=== PATIENT | female | born 1935 | race Caucasian/White ===

== ENCOUNTER → 2024-01-08 07:16 | Outpatient (REF) | payer OTHER, SELFPAY ==
[2024-01-08 08:34] LABS: % Basophils 0.5 % (0-2); % Eosinophils 1.8 % (0-6); % Immature Granulocytes 0.4 % (0-0.5); % Lymphocytes 20.8 % (20.5-51.1); % Monocytes 8.5 % (1.7-9.3); Absolute Eosinophils 0.2 10^3/uL (0-0.7); Absolute Lymphocytes 1.7 10^3/uL (1.2-3.4); Absolute Monocytes 0.7 10^3/uL (0.1-0.6); Absolute Neutrophils 5.6 10^3/uL (1.4-6.5); Hemoglobin 13.3 g/dL (12.0-16.0); Mean Corp Hgb Conc. 32.4 g/dL (33.0-37.0); Mean Corpuscular Hgb 28.4 pg (27.0-31.0); Mean Corpuscular Volume 87.4 fL (81.0-99.0); Mean Platelet Volume 8.5 fL (7.4-10.4); Nucleated Red Blood Cells % 0 %; Platelet Count 279 10^3/uL (130-400); Red Blood Cell Count 4.69 10^6/uL (4.20-5.40); Red Cell Dist. Width 12.8 % (11.5-14.5); White Blood Cell Count 8.2 10^3/uL (4.8-10.8)
[2024-01-08 08:38] LABS: Urine Albumin Negative (Neg - Trace); Urine Bilirubin Negative (Negative); Urine Character Clear (Clear); Urine Color Yellow; Urine Glucose Negative (Negative); Urine Ketone Negative (Negative); Urine Leukocyte 1+ (Negative); Urine Nitrite Negative (Negative); Urine Occult Blood Negative (Negative); Urine Urobilinogen Negative (Neg - 1+)
[2024-01-08 08:56] LABS: Glycohemoglobin (HgbA1c) 7.6 % (4.0-5.6)
[2024-01-08 09:15] LABS: Urine Red Blood Cell 0-2 /HPF (0-2)
[2024-01-08 09:17] LABS: Urine Bacteria Few (Negative)
[2024-01-08 09:24] LABS: ALT (SGPT) 25 U/L (0-35); AST (SGOT) 29 U/L (14-36); Albumin 4.5 g/dl (3.5-5.0); Alkaline Phosphatase 73 U/L (38-126); Blood Urea Nitrogen 16 mg/dl (7-17); Calcium 10.3 mg/dl (8.4-10.2); Carbon Dioxide 30 mmol/L (22-30); Chloride 101 mmol/L (98-107); Glucose 157 mg/dl (70-99); Potassium 3.9 mmol/L (3.5-5.1); Sodium 140 mmol/L (135-145); Total Bilirubin 1.4 mg/dl (0.2-1.3); Total Protein 7.1 g/dl (6.3-8.2); eGFR > 60.00
== END ==
LOC: HWLAB 07:16
PROVIDERS: ATTENDING PHYSICIAN Physician Assistant
DX: R42 Dizziness and giddiness (principal); R53.83 Other fatigue; I10 Essential (primary) hypertension; E11.9 Type 2 diabetes mellitus without complications; M06.9 Rheumatoid arthritis, unspecified; Z87.898 Personal history of other specified conditions; Z85.3 Personal history of malignant neoplasm of breast
CPT/HCPCS: 36415; 80053; 81003; 81015; 83036; 85025; 87086

== ENCOUNTER → 2024-01-24 13:17 | Outpatient (REF) | payer OTHER, SELFPAY | LOC: HWRAD 13:17 | PROVIDERS: ATTENDING PHYSICIAN Physician Assistant | DX: E11.9 Type 2 diabetes mellitus without complications (principal); R42 Dizziness and giddiness; I10 Essential (primary) hypertension; E78.2 Mixed hyperlipidemia; Z87.898 Personal history of other specified conditions | CPT/HCPCS: 93880 ==

== ENCOUNTER → 2024-03-31 06:43 | Outpatient (REF) | payer OTHER, SELFPAY ==
[2024-03-31 12:01] LABS: Microalbumin, Random Urine 26.9 mg/dl (0.6-1.7)
[2024-03-31 12:28] LABS: Glycohemoglobin (HgbA1c) 6.9 % (4.0-5.6)
== END ==
LOC: HWLAB 06:43
PROVIDERS: ATTENDING PHYSICIAN Physician Assistant
DX: E11.9 Type 2 diabetes mellitus without complications (principal)
CPT/HCPCS: 36415; 82043; 83036

== ENCOUNTER → 2024-05-16 06:25 | Outpatient (REF) | payer OTHER, SELFPAY ==
[2024-05-16 10:37] LABS: Glycohemoglobin (HgbA1c) 6.7 % (4.0-5.6)
[2024-05-16 10:44] LABS: HDL Cholesterol 59 mg/dl; LDL Cholesterol, Calculated 160 mg/dl; Total Cholesterol 253 mg/dl (50-199); Triglyceride 173 mg/dl (10-149); Very Low Density Lipoprotein 34 mg/dl (0-30)
== END ==
LOC: HWLAB 06:25
PROVIDERS: ATTENDING PHYSICIAN Physician Assistant
DX: E11.9 Type 2 diabetes mellitus without complications (principal); E78.2 Mixed hyperlipidemia; I10 Essential (primary) hypertension
CPT/HCPCS: 36415; 80061; 83036

== ENCOUNTER → 2024-05-27 15:28 | Outpatient (REF) | payer OTHER, SELFPAY | LOC: HWWDC 15:28 | PROVIDERS: ATTENDING PHYSICIAN Physician Assistant | DX: Z12.31 Encounter for screening mammogram for malignant neoplasm of breast (principal) | CPT/HCPCS: 77063; 77067 ==

== ENCOUNTER 2024-06-08 18:10 | Inpatient (IN) | payer OTHER, SELFPAY ==
[2024-06-08] VITALS (7 sets, daily range): BP systolic 128–180; BP diastolic 59–99; BMI 24.3
[2024-06-08 16:23] LABS: % Basophils 0.5 % (0-2); % Eosinophils 0.1 % (0-6); % Immature Granulocytes 0.7 % (0-0.5); % Lymphocytes 11.8 % (20.5-51.1); % Monocytes 6.4 % (1.7-9.3); % Neutrophils 80.5 % (42.2-75.2); Absolute Basophils 0.1 10^3/uL (0-0.2); Absolute Immature Granulocytes 0.1 10^3/uL (0-0.05); Absolute Lymphocytes 1.5 10^3/uL (1.2-3.4); Absolute Monocytes 0.8 10^3/uL (0.1-0.6); Absolute Neutrophils 10.3 10^3/uL (1.4-6.5); Hematocrit 42.3 % (37.0-47.0); Mean Corp Hgb Conc. 33.1 g/dL (33.0-37.0); Mean Corpuscular Hgb 28.9 pg (27.0-31.0); Mean Corpuscular Volume 87.4 fL (81.0-99.0); Mean Platelet Volume 8.6 fL (7.4-10.4); Nucleated Red Blood Cells % 0 %; Platelet Count 329 10^3/uL (130-400); Red Blood Cell Count 4.84 10^6/uL (4.20-5.40); Red Cell Dist. Width 12.4 % (11.5-14.5); White Blood Cell Count 12.8 10^3/uL (4.8-10.8)
--- NOTE | 2024-06-08 16:26 | ED.CVA ---
History of Present Illness
General
Chief Complaint: CVA/TIA Symptoms
Time Seen by Provider: 06/08/24 15:31
Onset of Stroke Symptoms
Onset of symptoms known: Yes
Date of onset of symptoms: 06/08/24
Time of onset of symptoms: 08:00
History of Present Illness
History of Present Illness:
89-year-old female presents to the emergency department for evaluation of headache, vomiting, and right facial droop. Patient is been complaining of a headache for the past 2 days, this morning at 8 AM she was noticed to have right facial drooping
by her but she refused to come to the emergency department at that time. She has had progressively uncontrollable vomiting since that time. Patient reports continued headache at this time. No recent fevers or chills. She denies any
vision changes, chest pain, or shortness of breath. No prior history of stroke.
Past History
Past History
ED Past Medical History: Cancer (Breast cancer), HTN, Hypercholesterolemia, NIDDM, Valvular disease (Heart murmur) and Other (Left bundle branch block, hemorrhoids, rheumatoid arthritis, sciatica, osteoporosis, vertigo)
ED Past Surgical History: Cholecystectomy, , Gynecological (Left breast lumpectomy) and Orthopedic (Lumbar back surgery)
Social History
Tobacco: Non-smoker
Alcohol: None
Personal:
Living: with family
Employment: Retired
Family History
Family History: Other (Noncontributory)
Review of Systems
Review of Systems
Allergies reviewed?: Yes
All Other Systems: ROS reviewed and negative except as documented in HPI and ROS
Phy Exam
Physical Exam
Physical Exam:
GEN: Well appearing, NAD, WDWN
HEENT: Oral mucosa moist, no scleral icterus, no nasal congestion
Cardiac: Regular rate
Lung: No respiratory distress, no tachypnea
MSK: No gross deformity or injuries
Skin: Good color, no pallor or jaundice, no rashes
Neuro: AO x3; subtle right facial droop at the nasolabial fold and slight asymmetry with smile, otherwise cranial nerves II through XII appear grossly intact. BUE strength 5/5 in all win[place], sensation intact and symmetric. BLE strength 5/5 in all
win[place], sensation intact and symmetric
Psych: Calm, cooperative appearing, actively vomiting
Course
Orders/Labs/Results
Orders:
Orders
06/08/24 15:40
Electrocardiogram (*1) Urgent
Reason for Study: TIA/Stroke
CT Head W/o Iv Contrast Urgent
Comment:
Reason For Exam: facial droop, headache, vomiting
EKG- Treatment ONCE
Ondansetron Injectable [Zofran] 4 mg IV NOW STA
06/08/24 16:05
Complete Blood Count/With Diff Urgent
Comprehensive Metabolic Panel Urgent
Troponin I Urgent
06/08/24 16:51
Dexamethasone Sod Phosphate [Decadron] 6 mg IV NOW STA
06/08/24 17:07
CT Chest/abd/pel W Iv Cont Urgent
Comment: w/ PO contrast
Reason For Exam: malignancy workup
Iohexol [Omnipaque] See Protocol PO NOW STA
06/08/24 17:09
HydrALAZINE [Apresoline] 5 mg IV NOW STA
06/08/24 17:45
Admit/Transfer Patient As Directed
Co-Sign Provider:
Level of Care: Inpatient admission
Assign to:: Telemetry
Physician / Group: renata
Diagnosis: parietal brain mass
Reason for Telemetry: CVA/TIA
Date to Stop Telemetry: 06/11/24
Time to Stop Telemetry: 11:00
Reason for Hospitalization: parietal brain mass
Expected length of stay greater than two midnights?: Yes
ELOS- Estimated Length of Stay in days: 2
I certify the patient meets the requirements for IP care: Yes
PRN Pain Medication Management As Directed
May give lesser potent ordered pain med per pt: Yes
preference::
Protocol:: Medication orders for pain may be administered in a
manner that supports deferring to patient preference
when the pt is:
- Requesting an ordered lesser potent pain medication.
Least to most potent pain medications are defined
as: acetaminophen < NSAID < tramadol < opioids
(morphine, oxycodone, hydromorphone).
- Requesting a lesser dose of the same medication IF
ORDERED.
- Requesting a less intrusive route of administration
if both routes are prescribed by the provider (PO <
IV).
06/08/24 17:46
Code Status As Directed
Resuscitation Status: Do not resuscitate
Reached after discussion with pt or family/Healthcare POA: Yes
DNR Bracelet Application ONCE
06/08/24 17:50
Lorazepam [Ativan] 0.5 mg PO NOW STA
06/11/24 11:00
DC Protocol for Telemetry ONCE
Abnormal Lab Results
06/08/24
16:05
WBC 12.8 H 10^3/uL
(4.8-10.8)
Abs Immat Gran (auto) 0.1 H 10^3/uL
(0-0.05)
Absolute Neuts (auto) 10.3 H 10^3/uL
(1.4-6.5)
Absolute Monos (auto) 0.8 H 10^3/uL
(0.1-0.6)
Immature Gran % 0.7 H %
(0-0.5)
Neutrophils % 80.5 H %
(42.2-75.2)
Lymphocytes % 11.8 L %
(20.5-51.1)
Glucose 165 H mg/dl
(70-99)
Total Bilirubin 1.6 H mg/dl
(0.2-1.3)
06/08/24 16:05
06/08/24 16:05
Vital Signs
Initial and Last Documented VS:
Initial Vital Signs
Temp Pulse Resp BP Pulse Ox
98.6 F 89 20 130/95 99
06/08/24 15:26 06/08/24 15:26 06/08/24 15:26 06/08/24 15:26 06/08/24 15:26
Last Documented Vital Signs
Temp Pulse Resp BP Pulse Ox
98.6 F 98 27 162/75 95
06/08/24 15:26 06/08/24 18:00 06/08/24 18:00 06/08/24 17:57 06/08/24 18:00
MDM/Problems Addressed
MDM/Problems Addressed:
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 She does have a prior history of breast cancer treated greater than 20 years ago. I reviewed the images and clinical findings with
neurosurgery on-call who recommend the patient can stay at this hospital for further malignancy workup with determination of any procedural intervention to be determined later through consultation. Initiated IV steroids and antihypertensive therapy
per neurosurgery recommendations
*Critical Care Note
Total Time (30-74mins, 75-104mins- exclusive of procedures): Not Applicable
ED Attending Note
-
Portions of this chart may have been created with voice recognition software.� Occasional wrong word or��sound alike� substitutions may have occurred due to the inherent limitations of voice recognition software.
Discharge Plan
Departure
Patient Disposition: Admit
Date of Disposition: 06/08/24
Time of Disposition: 17:09
Admit to: Med/Surg
Presentation/result/management discussed w/ accepting MD/DO: Hospitalist
Discharge Problem:
Brain mass
Interventions
Interventions:
*Risk Screen - Suicide Last Done: 06/08/24 15:26
[2024-06-08 16:34] LABS: ALT (SGPT) 20 U/L (0-35); AST (SGOT) 26 U/L (14-36); Albumin 4.9 g/dl (3.5-5.0); Alkaline Phosphatase 82 U/L (38-126); Blood Urea Nitrogen 12 mg/dl (7-17); Carbon Dioxide 28 mmol/L (22-30); Chloride 98 mmol/L (98-107); Glucose 165 mg/dl (70-99); Potassium 4.4 mmol/L (3.5-5.1); Sodium 144 mmol/L (135-145); Total Bilirubin 1.6 mg/dl (0.2-1.3); Total Protein 7.5 g/dl (6.3-8.2); eGFR > 60.00
[2024-06-08] MEDS: ZOFRAN 4 MG IV (16:37)
[2024-06-08 16:45] LABS: Troponin I < 0.012 ng/ml
[2024-06-08] MEDS: OMNIPAQUE 50 ML PO (17:51)
[2024-06-08] MEDS: DECADRON 6 MG IV (17:52)
[2024-06-08] MEDS: APRESOLINE 5 MG IV (17:54)
--- NOTE | 2024-06-08 17:55 | HPS.HSE ---
Family Physician
-
Family Physician: Xena Reed
Chief Complaint
-
headache, vomiting
History of Present Illness
89-year-old female past medical history of breast cancer status post left lumpectomy 20 years ago, hypertension, diabetes, presenting for headache, vomiting and right facial droop. Patient been complain of frontal headache for the past 2 days.
This morning she was noticed to have right facial drooping her but she refused to come to the emergency room at that time. She has had multiple episodes of nausea vomiting since this morning. No fevers or chills. Denies vision changes,
chest pain or shortness of breath. Denies prior history of stroke. Denies any numbness or tingling, focal weakness. Denies any difficulty swallowing or speech difficult. She has been having dizziness symptoms. Denies vertigo.
Patient does not smoke and drinks alcohol occasionally.
Medical History
Past Medical History
Past Medical History: Reports Other (breast cancer status post left lumpectomy 20 years ago, hypertension, diabetes)
Past Surgical History: Reports Other (Cholecystectomy, , Gynecological (Left breast lumpectomy) and Orthopedic (Lumbar back surgery))
Social History
Tobacco: Non-smoker
Alcohol: Occasional
Drug: None
Family History
Family History: Other (No neuro history )
Allergies / Home Medications
Allergies reflects when Allergies were last updated in [employer].
Home Medications with original date entered in [employer]
Allergy/Medication List:
Allergies
Allergy/AdvReac Type Severity Reaction Status Date / Time
aspirin Allergy Swelling Verified 06/08/24 15:29
Salicylates * Allergy Swelling Verified 06/08/24 15:29
Home Medications
hydrochlorothiazide 25 mg tablet 25 mg PO DAILY 02/24/19
acetaminophen 325 mg tablet (Tylenol) 650 mg PO Q4HPRN PRN mild pain 06/08/24
atorvastatin 10 mg tablet (Lipitor) 10 mg PO DAILY 06/08/24
metformin 500 mg tablet 500 mg PO DAILY 06/08/24
therapeutic multivitamin 1 tab PO DAILY 06/08/24
Review of Systems
-
History Source: Patient
A 12 point ROS was completed and negative except as noted: Yes
Constitutional: Reports No Symptoms
EENT: Reports No Symptoms
Respiratory: Reports No Symptoms
Cardiac: Reports No Symptoms
Abdomen/GI: Reports No Symptoms
: Reports No Symptoms
Musculoskeletal: Reports No Symptoms
Skin: Reports No Symptoms
Neurological: Reports See HPI
Endocrine: Reports No Symptoms
Hematologic/Lymphatic: Reports No Symptoms
Psych: Reports No Symptoms
Physical Exam
Vital Signs
Vital Signs
Temp Pulse Resp BP Pulse Ox
98.6 F 89 20 130/95 99
06/08/24 15:26 06/08/24 15:26 06/08/24 15:26 06/08/24 15:26 06/08/24 15:26
Physical Exam
General: Well Developed, Well Nourished and No Apparent Distress
HEENT: NormoCephalic, Moist mucous membranes and Atraumatic
Respiratory: Clear
Cardiac: S1/S2 and Regular Rhythm; No Murmur or Rub
GI: Soft, Non Tender, Non Distended and Normal Bowel Sounds; No Organomegaly
Rectal: Deferred by Provider
Musculoskeletal: No Clubbing, No Cyanosis and No Edema
Skin: No Rash
Neuro: Nonfocal/grossly intact
Laboratory Results
-
06/08/24 16:05
06/08/24 16:05
Laboratory Results
Total Bilirubin 1.6 mg/dl (0.2-1.3) H 06/08/24 16:05
AST 26 U/L (14-36) 06/08/24 16:05
ALT 20 U/L (0-35) 06/08/24 16:05
Alkaline Phosphatase 82 U/L (38-126) 06/08/24 16:05
Troponin I < 0.012 ng/ml 06/08/24 16:05
Data Reviewed
-
Lab Data: Labs Reviewed by me
Old Records: Reviewed
Impression/Plan
-
IMPRESSION:
PLAN:
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
-Slight right facial droop on examination, no other deficits
-CT head shows 1.7 x 1.3 x 1.3 cm mass
-Neuro checks per protocol
-Dexamethasone 6 mg every 6 hours
-Zofran
-Maintain systolic blood pressure under 140 with as needed hydralazine
-CT chest abdomen pelvis to look for source of primary tumor pending
# Anxiety
-Ativan dose to be given now
History of breast cancer status post left lumpectomy 20 years ago
Essential hypertension
-Continue hydrochlorothiazide
Type 2 diabetes
-Hold metformin
-Insulin sliding scale
DNR/DNI
DVT prophylaxis�SCDs
Regular diet
[2024-06-08] MEDS: ATIVAN 0.5 MG PO (18:33)
[2024-06-08 21:12] LABS: Glucose - Point of Care 194 mg/dl (70-99)
[2024-06-09 02:48] VITALS: BP 122/68
[2024-06-09 06:47] VITALS: BP 130/64
[2024-06-09] MEDS: THERAGRAN 1 TABLET PO (08:29)
[2024-06-09] MEDS: LIPITOR 10 MG PO (08:29)
[2024-06-09] MEDS: ORETIC 25 MG PO (08:29)
[2024-06-09 08:34] LABS: Glucose - Point of Care 304 mg/dl (70-99)
[2024-06-09] MEDS: NOVOLOG FLEXPEN-LOW RESISTANCE 4 UNITS SC (09:31)
[2024-06-09 09:38] LABS: % Basophils 0.1 % (0-2); % Immature Granulocytes 1.2 % (0-0.5); % Lymphocytes 7.6 % (20.5-51.1); % Monocytes 7.1 % (1.7-9.3); Absolute Immature Granulocytes 0.1 10^3/uL (0-0.05); Absolute Lymphocytes 0.9 10^3/uL (1.2-3.4); Absolute Monocytes 0.8 10^3/uL (0.1-0.6); Hematocrit 36.2 % (37.0-47.0); Hemoglobin 12.1 g/dL (12.0-16.0); Mean Corp Hgb Conc. 33.4 g/dL (33.0-37.0); Mean Corpuscular Hgb 28.8 pg (27.0-31.0); Mean Corpuscular Volume 86.2 fL (81.0-99.0); Mean Platelet Volume 8.6 fL (7.4-10.4); Nucleated Red Blood Cells % 0 %; Platelet Count 282 10^3/uL (130-400); Red Cell Dist. Width 12.7 % (11.5-14.5); White Blood Cell Count 11.9 10^3/uL (4.8-10.8)
[2024-06-09 10:17] LABS: AST (SGOT) 26 U/L (14-36); Albumin 4.1 g/dl (3.5-5.0); Alkaline Phosphatase 62 U/L (38-126); Blood Urea Nitrogen 22 mg/dl (7-17); Calcium 9.5 mg/dl (8.4-10.2); Carbon Dioxide 25 mmol/L (22-30); Chloride 98 mmol/L (98-107); Estimated Creatinine Clearance 32 ml/min; Glucose 256 mg/dl (70-99); Potassium 3.9 mmol/L (3.5-5.1); Sodium 138 mmol/L (135-145); Total Bilirubin 0.8 mg/dl (0.2-1.3); Total Protein 6.3 g/dl (6.3-8.2); eGFR > 60.00
--- NOTE | 2024-06-09 10:53 | CM ---
Reviewed the chart notes and spoke with the patient and her family at the bedside. The patient resides with her spouse in a one story home with one step to enter through the front. The patient reports no DME/VN/SNF in the past. The patient
confirmed her [facility] of choice [facility]. CM continues to be available to patient/family and is monitoring medical plan for needs at discharge.
Plan: Discharge plans will depend on the patient's progress.
[2024-06-09 11:08] LABS: ALT (SGPT) 25 U/L (0-35)
[2024-06-09 11:37] VITALS: BP 112/56
[2024-06-09 12:38] LABS: Glucose - Point of Care 195 mg/dl (70-99)
[2024-06-09] MEDS: NOVOLOG FLEXPEN-LOW RESISTANCE SC (15:05)
[2024-06-09] MEDS: NOVOLOG FLEXPEN 2 UNITS SC (15:06)
[2024-06-09 15:10] VITALS: BP 130/57
--- NOTE | 2024-06-09 15:42 | W.PN.HOSP.TC ---
Today's Communication/Plan
-
Neuro surgery eval
Assessment / Plan
Assessment / Plan
89-year-old female with headache and vomiting
CT abdomen and pelvis-cannot exclude small hiatal hernia or distal esophageal mass. No suspicious mass or lymphadenopathy. GI tract limited without oral contrast. Small uterine calcification-degenerated pneumonitis changes uterine or endometrial
mass cannot be excluded. Right hepatic and left renal cyst. Dilatation of extrahepatic biliary tract. Prior cholecystectomy. Dilatation of the extrahepatic biliary tract likely the sequela of prior cholecystectomy.
MRI Brain- There is extensive T2/FLAIR hyperintense signal extending within the left parieto-occipital lobes and extending into the left posterior hippocampus. There is a 1.8 x 1.0 cm focus of mild enhancement with associated restricted diffusion in
the posterior left parietal lobe as well as a focus of restricted effusion within the posterior left hippocampus measuring approximately 2.1 x 1.2 cm which also demonstrates mild enhancement. There is no definite associated necrosis or hemorrhage.
Findings may represent lymphoma with surrounding vasogenic edema or glioma. There is partial mild dural thickening overlying the left parietal lobe which may represent disease involvement.
CVS: S1-S2 normal
Chest: CTA B/L
Abdomen: Soft, NT / Bowel sounds present
Extremities: No edema
BUSINESS CONTINUITY CONSULTANT: Non focal exam per my exam today
#1.7 into 1.3 to 1.3 cm left parietal lobe mass with surrounding restenting edema extending to the occipital lobe
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
Neurochecks- Stable
NO focal deficits noted by me
Decadron 6 mg daily ordered, defer dosing to Neuro surgery
CT chest abdomen pelvis with out any evident source
Neurosurgery consulted
PT OT
# Hypertension
HCTZ may not be a good choice given brain mass and potential for SIADH And hyponatremia
# Type 2 diabetes-sliding scale coverage
Blood sugars are elevated secondary to steroids
Start long acting insulin for now
Hold metformin with CT
Hemoglobin A1c 6.7 on 05/16/24
# Hyperlipidemia-continue atorvastatin
# Anxiety
# History of back surgeries and spinal fusion
# History of breast cancer with lumpectomy in 2003
# Rheumatoid arthritis per chart
# Chronic left bundle branch block
# DVT prophylaxis-SCDs
# DNR
D/W Multiple family members at bed side ( MRI was not back at that time.)
Seen earlier. Late documentation.
Discussed with nursing
Anticipated Discharge: 24 - 48 hours
Subjective/Interval History
-
Date of Service: June 09, 2024
Objective Data
-
Labs:
Laboratory Results
06/09/24
09:13
WBC 11.9 H
Hgb 12.1
Hct 36.2 L
Plt Count 282
Sodium 138
Potassium 3.9
Chloride 98
Carbon Dioxide 25
BUN 22 H
Creatinine 0.9
Glucose 256 H
Calcium 9.5
Total Bilirubin 0.8
AST 26
ALT 25
Alkaline Phosphatase 62
Vital Signs:
Vital Signs
Temp Pulse Resp BP Pulse Ox
98.3 F 90 18 130/57 93
06/09/24 15:10 06/09/24 15:10 06/09/24 15:10 06/09/24 15:10 06/09/24 15:10
I&O
06/08/24 06/09/24 06/10/24
06:59 06:59 06:59
Intake Total 480 / 480 180 / 180
Balance 480 / 480 180 / 180
--- NOTE | 2024-06-09 16:39 | CON.NS ---
Consultation
-
Date/Time Consultation Performed: 06/09/2024; 16:50
Performing Provider: Johnathan
Chief Complaint
History of Present Illness
This is a neurosurgical consultation or an 89-year-old female, with a past medical history/remote history of breast cancer, status postlumpectomy 20 years prior. She has current medical issues including hypertension, diabetes, and presents now with
headache, vomiting, right facial droop for the past 2 days. She has had several episodes of nausea and vomiting as well. She had a noncontrast head CT in the emergency room, which revealed a left parietal vasogenic edema, with possible underlying
mass. She was admitted for further workup.
Patient seen and examined. She reports that her symptoms of nausea, vomiting, and right facial droop have resolved since she has been here.
She denies any visual changes over the past several weeks, or any increased headache, except for the one that prompted her to come in.
Review of Systems
-
10 per review of systems including constitutional, ENT, cardiovascular, respiratory, GI, , neurologic, endocrinologic, hematologic, was performed, and was negative, except for stated in HPI.
Medication and Allergies
Home Medications
Home Medications
�Medication �Instructions �Recorded
hydrochlorothiazide 25 mg tablet 25 mg PO DAILY Blood Pressure 02/24/19
acetaminophen 325 mg tablet 650 mg PO Q4HPRN PRN mild pain 06/08/24
(Tylenol)
atorvastatin 10 mg tablet (Lipitor) 10 mg PO DAILY High Cholesterol 06/08/24
metformin 500 mg tablet 500 mg PO DAILY Diabetes 06/08/24
therapeutic multivitamin 1 tab PO DAILY Supplement 06/08/24
Allergies
Allergies
Allergy/AdvReac Type Severity Reaction Status Date / Time
aspirin Allergy Swelling Verified 06/08/24 15:29
Salicylates * Allergy Swelling Verified 06/08/24 15:29
Physical Exam
-
Exam:
Awake, alert, no apparent distress.
Speech is fluent, comprehension is intact, repetition is normal.
Pupils are equal round reactive to light
Extraocular movements are full without any nystagmus.
Face is symmetric, tongue is midline
Motor: 5/5 strength bilaterally in upper and lower extremities, without any pronator drift.
Sensation to light touch is intact in bilateral upper extremities.
MRI of the brain with and without contrast was reviewed. There is evidence of extensive T2/FLAIR signal hyperintensity involving the left prior occipital lobe, which does extend into the left medial temporal lobe/hippocampus. There is also
evidence of restricted diffusion in this area which could be consistent with high-grade tumor versus stroke versus lymphoma. There is subtle contrast-enhancement of left superficial inferior parietal lesion.
Problems
-
Problem Status Onset Code
Brain mass G93.89
Assessment / Plan
-
This is an 89-year-old female who presents with above-stated symptoms.
MRI of the brain demonstrates restricted diffusion, as well as extensive FLAIR signal hyper intensity along the left parotic subdural, and medial temporal lobes. Differential diagnosis includes primary glial neoplasm such as glioma versus lymphoma
versus less likely stroke or metastasis.
For definitive diagnosis, in light of CT of the abdomen/pelvis being negative, likely tissue diagnosis will be required. Can try lumbar puncture for cytology, but yield on this may be low.
Given pattern of vasogenic edema/flair signal changes, as well as Notable findings of increased fullness of left hippocampal area compared with right, imaging appears to be more suspicious for neoplastic process, and less likely stroke.
I discussed thoroughly and extensively with the patient, and her family at additional options for workup which could include:
--No immediate surgical intervention or invasive testing with plans for close surveillance imaging in approximately 3 weeks.
--Lumbar puncture with cytology, flow cytometry
--Biopsy.
I did discuss that if patient wishes to pursue biopsy, then at her age, would also consider what the utility of that biopsy would mean, and that would she be willing to pursue additional/adjuvant definitive treatment based on biopsy results?
This may include, if biopsy results confirm neoplastic process, adjuvant treatment with radiation +/- chemotherapy.
Patient and family understand this, and wish to discuss amongst themselves. Additionally, would like to Get more information on what adjuvant treatment may involve.
Recommend oncology consultation
Recommend palliative consultation to discuss goals of care/diagnosis etc.
Discussed with [facility], Dr. Mendez.
If patient wishes to proceed with brain biopsy, would discontinue steroids at present time.
[2024-06-09] MEDS: APRESOLINE 5 MG IV (17:52)
[2024-06-09] MEDS: DECADRON 6 MG IV (17:54)
[2024-06-09 17:55] LABS: Glucose - Point of Care 211 mg/dl (70-99)
[2024-06-09] MEDS: NOVOLOG FLEXPEN-LOW RESISTANCE 2 UNITS SC (17:56)
[2024-06-09] MEDS: NOVOLOG FLEXPEN 3 UNITS SC (17:57)
[2024-06-09] MEDS: FLUSH (NSS) 3 FLUSH IV (17:58)
[2024-06-09] MEDS: XANAX 0.25 MG PO (18:05)
--- NOTE | 2024-06-09 18:18 | PTCARENOTE ---
Patient became extremely upset after the doctor talked with her about The MRI results and the possibility that it might be cancer.Blood pressure was checked and was 168/89 so I gave the Hydralazine ordered.I also requested something to help relax
her from the Hospitalist .Xanax 0.25bwas ordered and given.Patient had many family members at the bedside as well.
[2024-06-09 20:00] VITALS: BP 115/47
[2024-06-09 21:35] LABS: Glucose - Point of Care 263 mg/dl (70-99)
[2024-06-09] MEDS: LANTUS 0.05 UNITS SC (21:40)
[2024-06-09 23:05] VITALS: BP 134/69
[2024-06-10 03:02] VITALS: BP 144/72
[2024-06-10 07:00] VITALS: BP 138/82
[2024-06-10 08:03] LABS: Glucose - Point of Care 160 mg/dl (70-99)
[2024-06-10 09:03] LABS: Blood Urea Nitrogen 23 mg/dl (7-17); Calcium 9.9 mg/dl (8.4-10.2); Carbon Dioxide 25 mmol/L (22-30); Chloride 102 mmol/L (98-107); Estimated Creatinine Clearance 36 ml/min; Glucose 169 mg/dl (70-99); Potassium 3.9 mmol/L (3.5-5.1); Sodium 142 mmol/L (135-145); eGFR > 60.00
--- NOTE | 2024-06-10 09:08 | W.PN.HOSP.TC ---
Today's Communication/Plan
-
Patient and family really wants her to go home today. Oncology valuation awaited. Family leaning towards repeating the imaging study in 3 weeks and making decision at that time.
Oncology evaluation awaited
Assessment / Plan
Assessment / Plan
89-year-old female with headache and vomiting
CT abdomen and pelvis-cannot exclude small hiatal hernia or distal esophageal mass. No suspicious mass or lymphadenopathy. GI tract limited without oral contrast. Small uterine calcification-degenerated pneumonitis changes uterine or endometrial
mass cannot be excluded. Right hepatic and left renal cyst. Dilatation of extrahepatic biliary tract. Prior cholecystectomy. Dilatation of the extrahepatic biliary tract likely the sequela of prior cholecystectomy.
MRI Brain- There is extensive T2/FLAIR hyperintense signal extending within the left parieto-occipital lobes and extending into the left posterior hippocampus. There is a 1.8 x 1.0 cm focus of mild enhancement with associated restricted diffusion in
the posterior left parietal lobe as well as a focus of restricted effusion within the posterior left hippocampus measuring approximately 2.1 x 1.2 cm which also demonstrates mild enhancement. There is no definite associated necrosis or hemorrhage.
Findings may represent lymphoma with surrounding vasogenic edema or glioma. There is partial mild dural thickening overlying the left parietal lobe which may represent disease involvement.
CVS: S1-S2 normal
Chest: CTA B/L
Abdomen: Soft, NT / Bowel sounds present
Extremities: No edema
RADIOLOGY SCHEDULER: Non focal exam per my exam today
#1.7 into 1.3 to 1.3 cm left parietal lobe mass with surrounding edema extending to the occipital lobe
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
Neurochecks- Stable
NO focal deficits noted by me
Decadron 6 mg daily ordered.
If pt wishes to proceed with biopsy , need to stop steroids
Family leaning towards just rpt imaging.
CT chest abdomen pelvis with out any evident source
Neurosurgery consulted
PT OT
# Hypertension
HCTZ may not be a good choice, given chances of SIADH and hyponatremia with brain tumor, discontinue that and start Norvasc
# Type 2 diabetes-sliding scale coverage
Blood sugars are elevated secondary to steroids
Started long acting insulin
Restarted metformin at a higher dose
Hemoglobin A1c 6.7 on 05/16/24
# Hyperlipidemia-continue atorvastatin
# Anxiety
# History of back surgeries and spinal fusion
# History of breast cancer with lumpectomy in 2003
# Chronic left bundle branch block
# DVT prophylaxis-SCDs
# DNR
D/W family members , daughter and son
Son is comfortable with insulin if she needs to go home with that. Will need to see if she needs steroids
Son stated that patient has short-term memory loss but she refuses to admit that she has dementia. They confirmed that she does not have rheumatoid arthritis. Family requested to discuss the planNot in her presence that she gets very worked up and
anxious.
I discussed about palliative care and they are receptive.
I also discussed about discontinuing hydrochlorothiazide we will start Norvasc instead.
Anticipated Discharge: Today
Subjective/Interval History
-
Date of Service: June 10, 2024
Objective Data
-
Labs:
Laboratory Results
06/10/24
07:37
Sodium 142
Potassium 3.9
Chloride 102
Carbon Dioxide 25
BUN 23 H
Creatinine 0.8
Glucose 169 H
Calcium 9.9
Vital Signs:
Vital Signs
Temp Pulse Resp BP Pulse Ox
97.9 F 95 18 138/82 96
06/10/24 07:00 06/10/24 07:00 06/10/24 07:00 06/10/24 07:00 06/10/24 07:00
I&O
06/09/24 06/10/24 06/11/24
06:59 06:59 06:59
Intake Total 480 / 480 660 / 660
Balance 480 / 480 660 / 660
[2024-06-10] MEDS: NOVOLOG FLEXPEN-LOW RESISTANCE 1 UNITS SC ×2 (09:09→13:46)
[2024-06-10] MEDS: GLUCOPHAGE 1000 MG PO (09:10)
[2024-06-10] MEDS: LIPITOR 10 MG PO (09:10)
[2024-06-10] MEDS: NOVOLOG FLEXPEN 3 UNITS SC ×2 (09:10→13:46)
[2024-06-10] MEDS: THERAGRAN 1 TABLET PO (09:10)
[2024-06-10 10:42] VITALS: BP 132/60
--- NOTE | 2024-06-10 11:49 | CON.ONC ---
Impression
Impression
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
remote h/o breast cancer
dementia
Plan
Plan
Met w/ and son outside patient's room
Discussed likely diagnosis of malignancy. If lymphoma or glioma, or metastatic disease, prognosis is poor and treatment would likely only be palliative.
Agree w/ plans for steroids and repeat brain MRI in ~3 weeks.
Palliative care c/s, as she will likely need hospice before too long.
Okay for d/c; no med onc f/u needed
Patient History
History of Present Illness
89 yo F w/ dementia and remote h/o breast cancer presents with several day h/o headache and nausea/vomiting. Head CT and brain MRI show findings suggesting malignancy, possibly lymphoma with surrounding edema or glioma. CT imaging suggested no
disease in the CAP. She was started on steroids with some symptom improvement. Family at bedside, request that 'cancer' not be discussed in front of patient for fear of worsening her anxiety.
Neurosurg consult by Dr. Mann suggested options of biopsy now, versus continue steroids and repeat imaging in 3 weeks.
Past-Medical/Surgical History
Past Medical History
Past Medical History: Reports Other (breast cancer status post left lumpectomy 20 years ago, hypertension, diabetes)
Past Surgical History: Reports Other (Cholecystectomy, , Gynecological (Left breast lumpectomy) and Orthopedic (Lumbar back surgery))
Social History
Lives in house in [place], w/
Tobacco: Non-smoker
Alcohol: Occasional
Drug: None
Family History
Family History: Other (No neuro history )
Patient Medication
�Medication �Instructions �Recorded �Confirmed �Last Taken �Type
hydrochlorothiazide 25 mg tablet 25 mg PO DAILY Blood Pressure 02/24/19 06/08/24 02/23/19 History
acetaminophen 325 mg tablet 650 mg PO Q4HPRN PRN mild pain 06/08/24 06/08/24 Unknown History
(Tylenol)
atorvastatin 10 mg tablet (Lipitor) 10 mg PO DAILY High Cholesterol 06/08/24 06/08/24 Unknown History
metformin 500 mg tablet 500 mg PO DAILY Diabetes 06/08/24 06/08/24 Unknown History
therapeutic multivitamin 1 tab PO DAILY Supplement 06/08/24 06/08/24 Unknown History
Active Medications
Generic Name Dose Route Start Last Admin
Trade Name Freq PRN Reason Stop Dose Admin
Acetaminophen 650 mg 06/08/24 20:26
Acetaminophen 325 Mg Tablet PO 07/06/24 20:25
Q4HPRN PRN
mild pain
Amlodipine Besylate 5 mg 06/10/24 10:00
Amlodipine 5 Mg Tablet PO 07/08/24 09:59
DAILY ALVIN
Atorvastatin Calcium 10 mg 06/09/24 08:00 06/10/24 09:10
Atorvastatin (Lipitor) 10 Mg Tablet PO 07/07/24 07:59 10 mg
DAILY ALVIN Administration
Dexamethasone Sodium Phosphate 6 mg 06/09/24 18:00 06/09/24 17:54
Dexamethasone 4 Mg/Ml 1 Ml Vial IV 07/07/24 17:59 6 mg
Q24H ALVIN Administration
Dextrose 12.5 grams 06/08/24 20:26
Dextrose 50% (0.5 Grams/Ml) 50 Ml Syringe IV 07/06/24 20:25
[id number] PRN
hypoglycemia
Protocol
Glucagon 1 mg 06/08/24 20:26
Glucagon 1 Mg Vial IM 07/06/24 20:25
PRN PRN
hypoglycemia
Protocol
Hydralazine HCl 5 mg 06/08/24 20:26 06/09/24 17:52
Hydralazine 20 Mg/Ml Vial IV 07/06/24 20:25 5 mg
Q4HPRN PRN Administration
SBP>140
Insulin Glargine 5 units/ 0.05 mls @ 0 mls/hr 06/09/24 22:00 11/04/24 21:40
Device SC 07/07/24 21:59 0.05 mls
HS ALVIN Administration
As Directed
Insulin Aspart 0 units 06/09/24 07:30 06/10/24 09:09
Insulin Aspart Low Resistance 300 Units/3 Ml Pen.Injctr SC 07/07/24 07:29 1 units
AC ALVIN Administration
Protocol
Insulin Aspart 3 units 06/09/24 16:30 06/10/24 09:10
Insulin Aspart (100 Units/Ml) 3 Ml Flexpen SC 07/07/24 16:29 3 units
AC ALVIN Administration
Metformin HCl 1,000 mg 06/10/24 08:00 06/10/24 09:10
Metformin 1000 Mg Regular Release Tablet PO 07/08/24 07:59 1,000 mg
BID@0800,1700 ALVIN Administration
Multivitamins Therapeutic 1 tablet 06/09/24 08:00 06/10/24 09:10
Multivitamin Tablet PO 07/07/24 07:59 1 tablet
DAILY ALVIN Administration
Ondansetron HCl 4 mg 06/08/24 20:26
Ondansetron 4 Mg/2 Ml Vial IV 07/06/24 20:25
Q6HPRN PRN
NAUSEA/VOMITING
Sodium Chloride 0 flush 06/08/24 21:00 06/09/24 17:58
Sodium Chloride 0.9% (Flush) Syringe IV 07/06/24 20:59 3 flush
PER PROTOCOL ALVIN Administration
Physical Exam
-
General: Well Developed and Well Nourished; Negative Appears in Distress
HEENT: Negative Jaundice
Neurology: Non Focal and No Word Finding Difficulty
Skin: Warm and Dry
Psych: Anxious
Labs
Lab Results
WBC 11.9 10^3/uL (4.8-10.8) H 06/09/24 09:13
RBC 4.20 10^6/uL (4.20-5.40) 06/09/24 09:13
Hgb 12.1 g/dL (12.0-16.0) 06/09/24 09:13
Hct 36.2 % (37.0-47.0) L 06/09/24 09:13
MCV 86.2 fL (81.0-99.0) 06/09/24 09:13
MCH 28.8 pg (27.0-31.0) 06/09/24 09:13
MCHC 33.4 g/dL (33.0-37.0) 06/09/24 09:13
RDW 12.7 % (11.5-14.5) 06/09/24 09:13
Plt Count 282 10^3/uL (130-400) 06/09/24 09:13
MPV 8.6 fL (7.4-10.4) 06/09/24 09:13
Abs Immat Gran (auto) 0.1 10^3/uL (0-0.05) H 06/09/24 09:13
Absolute Neuts (auto) 10.0 10^3/uL (1.4-6.5) H 06/09/24 09:13
Absolute Lymphs (auto) 0.9 10^3/uL (1.2-3.4) L 06/09/24 09:13
Absolute Monos (auto) 0.8 10^3/uL (0.1-0.6) H 06/09/24 09:13
Absolute Eos (auto) 0.0 10^3/uL (0-0.7) 06/09/24 09:13
Absolute Basos (auto) 0.0 10^3/uL (0-0.2) 06/09/24 09:13
Immature Gran % 1.2 % (0-0.5) H 06/09/24 09:13
Neutrophils % 84.0 % (42.2-75.2) H 06/09/24 09:13
Lymphocytes % 7.6 % (20.5-51.1) L 06/09/24 09:13
Monocytes % 7.1 % (1.7-9.3) 06/09/24 09:13
Eosinophils % 0.0 % (0-6) 06/09/24 09:13
Basophils % 0.1 % (0-2) 06/09/24 09:13
Creatinine 0.8 mg/dL (0.6-1.0) 06/10/24 07:37
Vital Signs
Vital Signs
Temp Pulse Resp BP Pulse Ox
97.4 F 93 18 132/60 96
06/10/24 10:42 06/10/24 10:42 06/10/24 10:42 06/10/24 10:42 06/10/24 07:00
[2024-06-10] MEDS: NORVASC 5 MG PO (12:07)
--- NOTE | 2024-06-10 12:15 | W.PN.UPDATE ---
Addendum entered and electronically signed by Melania Mendez MD 06/10/24 13:21:
Case management made palliative care referral
Called and spoke to patient's daughter again regarding med change no insulin metformin. If sugars are over 90 to contact PCP to admit since.
Discussed with Dr. Emma Low earlier
Discussed with neurosurgery
More than 30 minutes spent in discharge including
Final examination of the patient
Summarizing hospital stay
Instructions for continuing care to all relevant caregivers
Preparation of discharge records, prescriptions, and referral forms
Total time spent (in minutes): 40 min
Original Note:
Update Note
Progress Note Update
D/W Neuro surgery- Decadron 2 mg BID for discharge
Therefore ill avoid insulin and go with higher dose of metformin only
she can check sugars at home and see pcpc to add meds if needed
Neuro Surgery office will arrange OP imaging.
[2024-06-10 12:44] LABS: Glucose - Point of Care 184 mg/dl (70-99)
--- NOTE | 2024-06-10 13:00 | CM ---
Addendum entered by Sushma Benitez 06/10/24 13:23:
PT/OT recs - HH
Spoke with pt/family at bedside - agree to home care - requesting [facility]
TT sent to [facility] Liaison for home care needs
Plan - home with [facility]
Original Note:
Chart reviewed
Poss d/c today pend oncology
Referral sent for outpatient Palliative consult
PT eval pend
--- NOTE | 2024-06-10 13:22 | W.DS.TRANS ---
Addendum entered and electronically signed by Melania Mendez MD 06/10/24 13:25:
Dictation- [id number]
Original Note:
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
-
Discharge Instructions:
Discharge Diagnosis/Procedures Brain mass
Hypertension
Diabetes
Hyperlipidemia
Anxiety
History of breast cancer
Chronic left bundle branch block
Diet As tolerated
Activity As tolerated
Driving Restrictions No driving
Others Tests MRI brain with and with out contrast in 3 weeks
Other Services [facility]
Instructions:
Stand-Alone Forms:
Changes to Home Medications: Yes
Discharge Medications:
DC Medications w/original date entered in [employer]
acetaminophen 325 mg tablet (Tylenol) 650 mg PO Q4HPRN PRN mild pain 06/08/24
atorvastatin 10 mg tablet (Lipitor) 10 mg PO DAILY High Cholesterol 06/08/24
therapeutic multivitamin 1 tab PO DAILY Supplement 06/08/24
amlodipine 5 mg tablet 5 mg PO DAILY Blood pressure #60 tabs 06/10/24
metformin 1,000 mg tablet 1,000 mg PO BID@0800,1700 Diabetes #60 tabs 06/10/24
pantoprazole 20 mg tablet,delayed release (Protonix) 20 mg PO DAILY while on steroids #60 tabs 06/10/24
Home Medication Changes
Protonix, amlodipine are new
Metformin dose changed
HCTZ discontinued
Pending Results: No
[2024-06-10 14:17] VITALS: BP 134/62
--- NOTE | 2024-06-10 14:21 | W.DS.TRANS ---
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
-
Discharge Instructions:
Discharge Diagnosis/Procedures Brain mass
Hypertension
Diabetes
Hyperlipidemia
Anxiety
History of breast cancer
Chronic left bundle branch block
Diet As tolerated
Activity As tolerated
Driving Restrictions No driving
Others Tests MRI brain with and with out contrast in 3 weeks
Other Services [facility]
Instructions:
Stand-Alone Forms:
Changes to Home Medications: Yes
Discharge Medications:
DC Medications w/original date entered in [facility]
acetaminophen 325 mg tablet (Tylenol) 650 mg PO Q4HPRN PRN mild pain 06/08/24
atorvastatin 10 mg tablet (Lipitor) 10 mg PO DAILY High Cholesterol 06/08/24
therapeutic multivitamin 1 tab PO DAILY Supplement 06/08/24
amlodipine 5 mg tablet 5 mg PO DAILY Blood pressure #60 tabs 06/10/24
dexamethasone 2 mg tablet 2 mg PO BID brain #60 tabs 06/10/24
metformin 1,000 mg tablet 1,000 mg PO BID@0800,1700 Diabetes #60 tabs 06/10/24
pantoprazole 20 mg tablet,delayed release (Protonix) 20 mg PO DAILY while on steroids #60 tabs 06/10/24
Home Medication Changes
Protonix, amlodipine are new
Metformin dose changed
HCTZ discontinued
Dexamethasone 2 mg BID new
Pending Results: No
--- NOTE | 2024-06-10 14:40 | VNURNOTE ---
Home Health Liaison met with patient, spouse James and family at bedside to discuss [facility] nurse/therapy, visits, schedule and homebound status. Patient is agreeable and understands that visits at home will be 2-3 x per week to assess and teach medical
management.
[facility] brochure provided with contact information. Patient is aware that [facility] will contact them for start of care in 1-2 days after discharge from .
[facility] referral completed in [facility].
== END 2024-06-10 14:31 | disposition home health service (06) | DRG 840 ==
LOC: 2 SOUTH 18:10
PROVIDERS: Physician Assistant; ADMITTING PHYSICIAN Hospitalist; ATTENDING PHYSICIAN Hospitalist; CONSULT PHYSICIAN Internal Medicine Hematology & Oncology; CONSULT PHYSICIAN Neurological Surgery; EMERGENCY PHYSICIAN Emergency Medicine; FAMILY PHYSICIAN Physician Assistant
DX: C85.89 Other specified types of non-Hodgkin lymphoma, extranodal and solid organ sites (principal); G93.6 Cerebral edema; F03.94 Unspecified dementia, unspecified severity, with anxiety; I10 Essential (primary) hypertension; E11.9 Type 2 diabetes mellitus without complications; I44.7 Left bundle-branch block, unspecified; Z66 Do not resuscitate; Z85.3 Personal history of malignant neoplasm of breast
CPT/HCPCS: 70450; 70553; 71260; 74177; 80048; 80053; 82962; 84484; 85025; 93005; 96374; 97116; 97163; 97166; 99285; A9575; Q9967

== ENCOUNTER → 2024-07-09 14:43 | Outpatient (REF) | payer OTHER, SELFPAY | LOC: RAD 14:43 | PROVIDERS: ATTENDING PHYSICIAN Physician Assistant | DX: R05.1 Acute cough (principal) | CPT/HCPCS: 71046 ==

== ENCOUNTER 2024-07-13 11:04 | Emergency (ER) | payer OTHER, SELFPAY ==
[2024-07-13 11:08] VITALS: BP 153/66
[2024-07-13 11:52] LABS: % Basophils 0.4 % (0-2); % Eosinophils 1.3 % (0-6); % Immature Granulocytes 1.7 % (0-0.5); % Lymphocytes 13.8 % (20.5-51.1); % Monocytes 7.3 % (1.7-9.3); % Neutrophils 75.5 % (42.2-75.2); Absolute Eosinophils 0.1 10^3/uL (0-0.7); Absolute Immature Granulocytes 0.2 10^3/uL (0-0.05); Absolute Lymphocytes 1.3 10^3/uL (1.2-3.4); Absolute Monocytes 0.7 10^3/uL (0.1-0.6); Absolute Neutrophils 7.1 10^3/uL (1.4-6.5); Hematocrit 38.4 % (37.0-47.0); Hemoglobin 12.6 g/dL (12.0-16.0); Mean Corp Hgb Conc. 32.8 g/dL (33.0-37.0); Mean Corpuscular Hgb 29.2 pg (27.0-31.0); Mean Corpuscular Volume 89.1 fL (81.0-99.0); Mean Platelet Volume 8.4 fL (7.4-10.4); Nucleated Red Blood Cells % 0 %; Platelet Count 300 10^3/uL (130-400); Red Blood Cell Count 4.31 10^6/uL (4.20-5.40); Red Cell Dist. Width 13.2 % (11.5-14.5); White Blood Cell Count 9.4 10^3/uL (4.8-10.8)
[2024-07-13 12:05] LABS: ALT (SGPT) 27 U/L (0-35); AST (SGOT) 21 U/L (14-36); Albumin 3.8 g/dl (3.5-5.0); Alkaline Phosphatase 95 U/L (38-126); Blood Urea Nitrogen 19 mg/dl (7-17); Calcium 9.3 mg/dl (8.4-10.2); Carbon Dioxide 29 mmol/L (22-30); Chloride 99 mmol/L (98-107); Glucose 156 mg/dl (70-99); Potassium 3.6 mmol/L (3.5-5.1); Sodium 139 mmol/L (135-145); Total Bilirubin 0.6 mg/dl (0.2-1.3); Total Protein 6.3 g/dl (6.3-8.2); eGFR > 60.00
[2024-07-13 12:15] VITALS: BP 152/69
--- NOTE | 2024-07-13 12:43 | ED.GENMED ---
History of Present Illness
General
Chief Complaint: Cold/Flu/URI Symptoms
Source: family
Exam Limitations: dementia
Time Seen by Provider: 07/13/24 12:08
Nursing documentation reviewed up to this point in time: agreed with
History of Present Illness
History of Present Illness:
Patient is an 89-year-old female with past medical history of hypertension diabetes hyperlipidemia anxiety breast cancer chronic left bundle branch block recently diagnosed with brain mass when she was admitted June 08. Patient presents with
family for evaluation of cough for the past 1 week. Family reports no fevers no difficulty breathing. Has no prior lung issues. She is scheduled for an outpatient MRI in the next several weeks and is scheduled to see Dr. Robyn Law of neurosurgery
Jul 24. She is on low-dose steroids, Decadron 2 mg once daily at this time for the brain mass.
has mild cold symptoms at this time
Past History
Past History
ED Past Medical History: Cancer (Breast cancer), HTN, Hypercholesterolemia, NIDDM, Valvular disease (Heart murmur) and Other (Left bundle branch block, hemorrhoids, rheumatoid arthritis, sciatica, osteoporosis, vertigo)
ED Past Surgical History: Cholecystectomy, , Gynecological (Left breast lumpectomy) and Orthopedic (Lumbar back surgery)
Social History
Tobacco: Non-smoker
Alcohol: None
Personal:
Living: with family
Employment: Retired
Family History
Family History: Other (Noncontributory)
Review of Systems
Review of Systems
Allergies reviewed?: Yes
All Other Systems: ROS reviewed and negative except as documented in HPI and ROS
Constitutional: Denies fever, fatigue or chills
Respiratory: Reports cough; Denies trouble breathing
Cardiac: Reports no symptoms
ABD/GI: Reports no symptoms
: Reports no symptoms
Musculoskeletal: Reports no symptoms
Skin: Reports no symptoms
Neurological: Reports no symptoms
Psychiatric: Reports no symptoms
Phy Exam
General Physical Exam
General Presentation: no apparent distress
General age: appears stated age
General Skin: warm and dry
General Habitus: normal
General Mental: alert
General Hydration: appears well hydrated
Cardiovascular Exam
Cardiovascular Exam: regular rate/rhythm, no murmur and normal peripheral pulses
Pulmonary Exam
Pulmonary Exam: no respiratory distress and other (mild cough mild exp wheeze )
Neurological Exam
Neurological Exam: alert
Musculoskeletal Exam
Musculoskeletal Exam: full ROM
Skin Exam
Skin Exam: normal color
Psychiatric Exam
Psychiatric Exam: normal mood/affect
Course
Orders/Labs/Results
Orders:
Orders
07/13/24 11:31
CR Chest - 2 Views Urgent
Comment:
Reason For Exam: suspected infection
07/13/24 11:39
Complete Blood Count/With Diff Urgent
Comprehensive Metabolic Panel Urgent
07/13/24 13:07
Albuterol Nebs [Ventolin Nebules] 2.5 mg INH R NOW STA
07/13/24 13:20
COVID-19 Antigen Urgent
Source: Nasal Swab
Influenza A+B Rapid Molecular Urgent
HORTENCIA Source: Nasal Swab
Specimen Description:
07/13/24 13:28
Dexamethasone Pf [Decadron] 10 mg PO NOW STA
07/13/24 14:58
Ipratropium/Albuterol Sulfate [Duoneb] 3 ml INH R NOW STA
Abnormal Lab Results
07/13/24
11:39
MCHC 32.8 L g/dL
(33.0-37.0)
Abs Immat Gran (auto) 0.2 H 10^3/uL
(0-0.05)
Absolute Neuts (auto) 7.1 H 10^3/uL
(1.4-6.5)
Absolute Monos (auto) 0.7 H 10^3/uL
(0.1-0.6)
Immature Gran % 1.7 H %
(0-0.5)
Neutrophils % 75.5 H %
(42.2-75.2)
Lymphocytes % 13.8 L %
(20.5-51.1)
BUN 19 H mg/dl
(7-17)
Glucose 156 H mg/dl
(70-99)
07/13/24 11:39
07/13/24 11:39
Vital Signs
Initial and Last Documented VS:
Initial Vital Signs
Temp Pulse Resp BP Pulse Ox
97.6 F 93 20 153/66 92
07/13/24 11:08 07/13/24 11:08 07/13/24 11:08 07/13/24 11:08 07/13/24 11:08
Last Documented Vital Signs
Temp Pulse Resp BP Pulse Ox
97.6 F 115 30 137/45 91
07/13/24 11:08 07/13/24 16:15 07/13/24 16:15 07/13/24 16:00 07/13/24 16:15
MDM/Problems Addressed
Differential Diagnosis Includes:
not limited to: URI/bronchitis, less likely COVID influenza,, pneumonia
MDM/Problems Addressed:
As documented patient is an 89-year-old female who presents for cough for 1 week. Symptoms are consistent with bronchitis patient denies any associated fevers her chest x-ray is negative she is negative for COVID flu. She has mild wheezing.
Patient was given a neb here. Patient was recently diagnosed with a brain mass here during previous admission in June. She is on Decadron 2 mg daily. I spoke with her neurosurgeon Dr. Law who is ok with patient receiving 10 mg of Decadron
here for wheezing and will have patient restart her regular 2 mg tomorrow for brain mass. She is scheduled to follow-up with her July 24. She has no neurological complaints.
Patient received additional neb and feeling much better. Pulse ox ambulating is around 92%. She denies any difficulty breathing and is very well-appearing no fever as documented with a normal white count stable for discharge home will DC with
inhaler to patient's pharmacy and as discussed with neurosurgery will place back on dexamethasone 2 mg will also give a prescription. She has to follow-up with her family doctor in the next several days for reevaluation of present symptoms and Dr.
Johnathan as scheduled
*Radiology
Radiology exam reviewed: radiology read reviewed
*Pulse Oximetry
Patient hypoxic: no
*Critical Care Note
Total Time (30-74mins, 75-104mins- exclusive of procedures): Not Applicable
ED Attending Note
-
Portions of this chart may have been created with voice recognition software.� Occasional wrong word or��sound alike� substitutions may have occurred due to the inherent limitations of voice recognition software.
Discharge Plan
Departure
Patient Disposition: Home (Routine Discharge)
Date of Disposition: 07/13/24
Time of Disposition: 16:37
Patient with high blood pressure during this ER visit?: Yes
Condition: Fair
Covid-19: Negative COVID-19
Discharge Problem:
Bronchitis
Instructions: Acute Bronchitis, Adult (DC), BLOOD PRESSURE
Prescriptions:
New
albuterol sulfate 90 mcg/actuation HFA aerosol inhaler
2 inh inhalation Q6H PRN (Reason: shortness of breath or wheezing) Qty: 6.7 0RF
dexamethasone 2 mg tablet
2 mg PO DAILY Qty: 30 0RF
No Action
acetaminophen [Tylenol] 325 mg Tablet
650 mg PO Q4HPRN PRN (Reason: mild pain)
atorvastatin [Lipitor] 10 mg Tablet
10 mg PO DAILY
therapeutic multivitamin Tablet
1 tab PO DAILY
amlodipine 5 mg Tablet
5 mg PO DAILY Qty: 60 0RF
metformin 1,000 mg Tablet
1,000 mg PO BID@0800,1700 Qty: 60 0RF
pantoprazole [Protonix] 20 mg tablet,delayed release (DR/EC)
20 mg PO DAILY Qty: 60 0RF
dexamethasone 2 mg tablet
2 mg PO BID Qty: 60 0RF
Referrals:
Xena Reed PA-C [Family Provider] -
Activity Restrictions/Additional Instructions:
As discussed and inhaler was sent to your pharmacy use as directed 2 puffs every 4-6 hours as needed for wheezing. A prescription for steroid 2 mg was sent to your pharmacy take as directed starting tomorrow. Follow-up with your family doctor the
neck several days for reevaluation of your symptoms. Return if any worsening of symptoms including shortness of breath fever chills or any further concerns.
Follow-up with Dr. Law as scheduled.
Interventions
Interventions:
*Risk Screen - Suicide Last Done: 07/13/24 11:08
*General Assessment Last Done: 07/13/24 11:08
*Neglect/Abuse Screening Last Done: 07/13/24 11:08
ED- Fall Risk Assessment Last Done: 07/13/24 12:39
*ED COVID-19 Vaccine History Last Done: 07/13/24 12:35
*Nursing Disposition Last Done: 07/13/24 16:55
ED- Pulmonary Assessment Last Done: 07/13/24 12:38
Discharge Date and Time
Discharge Date/Time: 07/13/24 16:55
Print Language: VIET[place]ESE
[2024-07-13 13:00] VITALS: BP 149/82
[2024-07-13] MEDS: VENTOLIN NEBULES 2.5 MG INH (13:14)
[2024-07-13] MEDS: DECADRON 10 MG PO (13:40)
[2024-07-13 13:50] LABS: COVID-19 Antigen Negative (Negative)
[2024-07-13 14:00] VITALS: BP 142/59
[2024-07-13 15:00] VITALS: BP 140/68
[2024-07-13] MEDS: DUONEB 3 ML INH (15:18)
[2024-07-13 16:00] VITALS: BP 137/45
== END 2024-07-13 16:55 | disposition home or self-care (01) ==
LOC: EMR 11:04
PROVIDERS: Nurse Practitioner; EMERGENCY PHYSICIAN Emergency Medicine; FAMILY PHYSICIAN Physician Assistant
DX: J20.9 Acute bronchitis, unspecified (principal); Z11.52 Encounter for screening for COVID-19; R53.1 Weakness; I10 Essential (primary) hypertension; E11.9 Type 2 diabetes mellitus without complications; E78.00 Pure hypercholesterolemia, unspecified; M06.9 Rheumatoid arthritis, unspecified; G93.9 Disorder of brain, unspecified; I44.7 Left bundle-branch block, unspecified; M81.0 Age-related osteoporosis without current pathological fracture; F41.9 Anxiety disorder, unspecified; Z85.3 Personal history of malignant neoplasm of breast; Z90.49 Acquired absence of other specified parts of digestive tract; Z88.6 Allergy status to analgesic agent; Z88.8 Allergy status to other drugs, medicaments and biological substances
CPT/HCPCS: 99284; 94640 ×2; 71046; 80053; 85025; 87502; 87811

== ENCOUNTER 2024-07-16 22:31 | Inpatient (IN) | payer OTHER, SELFPAY ==
[2024-07-16] VITALS (7 sets, daily range): BP systolic 98–174; BP diastolic 64–101
--- NOTE | 2024-07-16 15:24 | ED.GENMED ---
ED Provider Triage
<Yuli Mtz PA-C - Last Filed: 07/16/24 15:31>
-
Patient seen by provider in Triage?: Seen in Triage
89 y/o F with h/o newly diagnosed brain mass, htn, dm
was here 07/13 for same symptoms of cough, sob, not feeling well
she had w/u showing flu/covid neg, cxr clear, she was given extra dsoe of decadron and neb and felt better
d/c home but has continued to have cough and feel sob
she has no pain
she is generally weak
no vomiting, ches tpain
she is weak/ill appearing
midly tachy
pulse ox 93%
with this new brain mass which culd be malignant, concern for PE possibliity
will start with labs, ekg, d dimer
A medical screening examination has been initiated by a qualified medical provider. Based on the assessment performed at this time, it has been determined that an emergent medical condition may exist and the patient has been informed that further
medical evaluation and possible additional diagnostic testing may be needed.
HPI: This is a medical evaluation conducted in person to initiate diagnostic evaluation and provide initial therapeutics. Please see further documentation by the treating clinician.
GENERAL: Alert , weak
ENT: No visible abnormalities
LUNGS: No acute respiratory distress
clear lungs
NEUROLOGICAL: Alert and oriented
SKIN: Skin intact. No visible changes.
MUSCULOSKELETAL: Moving extremities normally
PSYCH: Normal and appropriate interaction.
History of Present Illness
<Yuli Mtz PA-C - Last Filed: 07/16/24 15:31>
General
Chief Complaint: Cold/Flu/URI Symptoms
Time Seen by Provider: 07/16/24 18:08
<Srinath Kim Jr., PA-C - Last Filed: 07/16/24 21:26>
General
Source: patient and spouse
Exam Limitations: none
Nursing documentation reviewed up to this point in time: agreed with
History of Present Illness
History of Present Illness:
89-year-old female presenting to the emergency department today with concerns of worsening shortness of breath cough and some audible wheezing over the past few days. Was here for similar issues 3 days ago was given a dose of dexamethasone and had
a DuoNeb. Had some slight relief at the time but has worsened over the past 24 hours. Denies specific chest pain but has felt very short of breath with light exertion. Denies any smoking history denies any known history of COPD.
Past History
<Yuli Mtz PA-C - Last Filed: 07/16/24 15:31>
Past History
ED Past Medical History: Cancer (Breast cancer), HTN, Hypercholesterolemia, NIDDM, Valvular disease (Heart murmur) and Other (Left bundle branch block, hemorrhoids, rheumatoid arthritis, sciatica, osteoporosis, vertigo)
ED Past Surgical History: Cholecystectomy, , Gynecological (Left breast lumpectomy) and Orthopedic (Lumbar back surgery)
Social History
Tobacco: Non-smoker
Alcohol: None
Personal:
Living: with family
Employment: Retired
Family History
Family History: Other (Noncontributory)
Review of Systems
<Srinath Kim Jr., PA-C - Last Filed: 07/16/24 21:26>
Review of Systems
Allergies reviewed?: Yes
All Other Systems: ROS reviewed and negative except as documented in HPI and ROS
Phy Exam
<Srinath Kim Jr., PA-C - Last Filed: 07/16/24 21:26>
Physical Exam
Physical Exam:
GENERAL: Alert , in no apparent distress
EYE: pupils equal and reactive
NECK: Supple, no significant adenopathy.
ENT: o/p clr, mmm.
CARDIAC: Regular rate and rhythm .
LUNGS: Expiratory wheezing diffusely
ABDOMEN: Soft, without focal tenderness, no r/g, no cvat
NEUROLOGICAL: Alert and oriented, no focal neuro deficits
SKIN: Warm and dry, skin intact.
MUSCULOSKELETAL: No edema, well perfused.
PSYCH: Normal and appropriate interaction.
Course
<Yuli Mtz PA-C - Last Filed: 07/16/24 15:31>
Orders/Labs/Results
Orders:
Orders
07/16/24 15:39
Complete Blood Count/With Diff Urgent
Comprehensive Metabolic Panel Urgent
D-Dimer Urgent
Manual Differential Urgent
NT-proBNP Urgent
Troponin I Urgent
07/16/24 18:00
Chest [CR Chest - 2 Views ] Urgent
Comment:
Reason For Exam: cough
07/16/24 18:09
EKG [Electrocardiogram (*1)] Urgent
Reason for Study: Fatigue / Weakness
EKG- Treatment ONCE
07/16/24 19:41
Urinalysis Reflex To Culture Urgent
Date Specimen was Collected: 07/16/24
Time Specimen was Collected: 19:40
Urine Microscopic Reflex Cult Urgent
07/16/24 19:50
Dexamethasone [Decadron] 10 mg PO NOW STA
Ipratropium/Albuterol Sulfate [Duoneb] 3 ml INH R NOW ONE
Abnormal Lab Results
07/16/24 07/16/24
15:39 19:41
WBC 12.1 H 10^3/uL
(4.8-10.8)
MCHC 32.4 L g/dL
(33.0-37.0)
Abs Neuts (Manual) 8.9 H 10^3/uL
(1.4-6.5)
Lymphocytes (Manual) 17 L %
(20-51)
Glucose 140 H mg/dl
(70-99)
Total Protein 6.0 L g/dl
(6.3-8.2)
Urine Bilirubin 1+ A
(Negative)
Leukocyte Esterase Rfl Trace A
(Negative)
Urine Bacteria (Reflex) Few A
(Negative)
07/16/24 15:39
07/16/24 15:39
Vital Signs
Initial and Last Documented VS:
Initial Vital Signs
Temp Pulse Resp BP Pulse Ox
99.1 F 103 18 143/64 93
07/16/24 15:25 07/16/24 15:25 07/16/24 15:25 07/16/24 15:25 07/16/24 15:25
Last Documented Vital Signs
Temp Pulse Resp BP Pulse Ox
99.1 F 99 16 169/101 90
07/16/24 15:25 07/16/24 21:00 07/16/24 20:45 07/16/24 20:00 07/16/24 21:00
<Srinath Kim Jr., PA-C - Last Filed: 07/16/24 21:26>
Orders/Labs/Results
Orders:
Orders
07/16/24 15:39
Complete Blood Count/With Diff Urgent
Comprehensive Metabolic Panel Urgent
D-Dimer Urgent
Manual Differential Urgent
NT-proBNP Urgent
Troponin I Urgent
07/16/24 18:00
Chest [CR Chest - 2 Views ] Urgent
Comment:
Reason For Exam: cough
07/16/24 18:09
EKG [Electrocardiogram (*1)] Urgent
Reason for Study: Fatigue / Weakness
EKG- Treatment ONCE
07/16/24 19:41
Urinalysis Reflex To Culture Urgent
Date Specimen was Collected: 07/16/24
Time Specimen was Collected: 19:40
Urine Microscopic Reflex Cult Urgent
07/16/24 19:50
Dexamethasone [Decadron] 10 mg PO NOW STA
Ipratropium/Albuterol Sulfate [Duoneb] 3 ml INH R NOW ONE
Abnormal Lab Results
07/16/24 07/16/24
15:39 19:41
WBC 12.1 H 10^3/uL
(4.8-10.8)
MCHC 32.4 L g/dL
(33.0-37.0)
Abs Neuts (Manual) 8.9 H 10^3/uL
(1.4-6.5)
Lymphocytes (Manual) 17 L %
(20-51)
Glucose 140 H mg/dl
(70-99)
Total Protein 6.0 L g/dl
(6.3-8.2)
Urine Bilirubin 1+ A
(Negative)
Leukocyte Esterase Rfl Trace A
(Negative)
Urine Bacteria (Reflex) Few A
(Negative)
07/16/24 15:39
07/16/24 15:39
Vital Signs
Initial and Last Documented VS:
Initial Vital Signs
Temp Pulse Resp BP Pulse Ox
99.1 F 103 18 143/64 93
07/16/24 15:25 07/16/24 15:25 07/16/24 15:25 07/16/24 15:25 07/16/24 15:25
Last Documented Vital Signs
Temp Pulse Resp BP Pulse Ox
99.1 F 99 16 169/101 90
07/16/24 15:25 07/16/24 21:00 07/16/24 20:45 07/16/24 20:00 07/16/24 21:00
<Srinath Kim Jr., PA-C - Last Filed: 07/16/24 21:26>
MDM/Problems Addressed
MDM/Problems Addressed:
89-year-old female presenting to the emergency department today with concerns of shortness of breath with light exertion ongoing cough and wheeze over the past few days. Worsening today. Upon arrival here pulse ox with low 90s heart rate in the
110s. Temperature of 99.1. Patient does have expiratory wheezing. Was given DuoNeb and dexamethasone with still ongoing shortness of breath plan to admit for further treatment and monitoring
<Srinath Kim Jr., PA-C - Last Filed: 07/16/24 21:26>
*Critical Care Note
Total Time (30-74mins, 75-104mins- exclusive of procedures): Not Applicable
ED Attending Note
<Yuli Mtz PA-C - Last Filed: 07/16/24 15:31>
-
Portions of this chart may have been created with voice recognition software.� Occasional wrong word or��sound alike� substitutions may have occurred due to the inherent limitations of voice recognition software.
Discharge Plan
Departure
Patient Disposition: Admit
Date of Disposition: 07/16/24
Time of Disposition: 21:26
Admit to: Med/Surg
Admit to doctor: Olvin
Presentation/result/management discussed w/ accepting MD/DO: Hospitalist
Patient with high blood pressure during this ER visit?: No
Condition: Good
Covid-19: Not Applicable
Discharge Problem:
Wheeze, Breath shortness
Prescriptions:
No Action
acetaminophen [Tylenol] 325 mg Tablet
650 mg PO Q4HPRN PRN (Reason: mild pain)
atorvastatin [Lipitor] 10 mg Tablet
10 mg PO DAILY
therapeutic multivitamin Tablet
1 tab PO DAILY
amlodipine 5 mg Tablet
5 mg PO DAILY Qty: 60 0RF
metformin 1,000 mg Tablet
1,000 mg PO BID@0800,1700 Qty: 60 0RF
pantoprazole [Protonix] 20 mg tablet,delayed release (DR/EC)
20 mg PO DAILY Qty: 60 0RF
dexamethasone 2 mg tablet
2 mg PO BID Qty: 60 0RF
albuterol sulfate 90 mcg/actuation HFA aerosol inhaler
2 inh inhalation Q6H PRN (Reason: shortness of breath or wheezing) Qty: 6.7 0RF
dexamethasone 2 mg tablet
2 mg PO DAILY Qty: 30 0RF
Referrals:
Xochilt Ferguson MD [Family Provider] -
Interventions
Interventions:
*Risk Screen - Suicide Last Done: 07/16/24 15:25
*Neglect/Abuse Screening Last Done: 07/16/24 15:25
*ED COVID-19 Vaccine History Last Done: 07/16/24 18:35
ED- Pulmonary Assessment Last Done: 07/16/24 18:19
Discharge Date and Time
Print Language: DANISH
[2024-07-16 16:03] LABS: Hematocrit 40.1 % (37.0-47.0); Mean Corp Hgb Conc. 32.4 g/dL (33.0-37.0); Mean Corpuscular Volume 89.3 fL (81.0-99.0); Mean Platelet Volume 8.3 fL (7.4-10.4); Platelet Count 361 10^3/uL (130-400); Red Blood Cell Count 4.49 10^6/uL (4.20-5.40); Red Cell Dist. Width 13.2 % (11.5-14.5); White Blood Cell Count 12.1 10^3/uL (4.8-10.8)
[2024-07-16 16:14] LABS: ALT (SGPT) 25 U/L (0-35); AST (SGOT) 19 U/L (14-36); Albumin 3.7 g/dl (3.5-5.0); Alkaline Phosphatase 89 U/L (38-126); Blood Urea Nitrogen 16 mg/dl (7-17); Calcium 9.6 mg/dl (8.4-10.2); Carbon Dioxide 28 mmol/L (22-30); Chloride 102 mmol/L (98-107); Glucose 140 mg/dl (70-99); Potassium 3.7 mmol/L (3.5-5.1); Sodium 139 mmol/L (135-145); Total Bilirubin 0.7 mg/dl (0.2-1.3); eGFR > 60.00
[2024-07-16 16:20] LABS: NT-proBNP 269 pg/ml; Troponin I < 0.012 ng/ml
[2024-07-16 16:24] LABS: D-Dimer 0.33 ug/mlFEU (0.00-0.50)
[2024-07-16 16:51] LABS: Absolute Neutrophils -Man Diff 8.9 10^3/uL (1.4-6.5); Band Neutrophils 1 % (0-3); Eosinophils 1 % (0-6); Lymphocytes 17 % (20-51); Monocytes 7 % (2-9); Myelocytes 1 % (-); Normal RBC Morphology Yes; Platelets Checked Yes; Segmented Neutrophils 73 % (42-75)
[2024-07-16 16:52] LABS: Total Cells Counted 100
[2024-07-16 19:48] LABS: Urine Albumin Trace (Neg - Trace); Urine Bilirubin 1+ (Negative); Urine Character Clear (Clear); Urine Color Yellow; Urine Glucose Negative (Negative); Urine Ketone Negative (Negative); Urine Leukocyte Trace (Negative); Urine Nitrite Negative (Negative); Urine Occult Blood Negative (Negative); Urine Urobilinogen Negative (Neg - 1+)
[2024-07-16 20:01] LABS: Urine Bacteria Few (Negative); Urine Red Blood Cell 0-2 /HPF (0-2)
[2024-07-16 20:02] LABS: Urine Mucus Few
[2024-07-16] MEDS: DECADRON 10 MG PO (20:11)
[2024-07-16] MEDS: DUONEB 3 ML INH (20:12)
--- NOTE | 2024-07-16 21:31 | W.PN.UPDATE ---
Addendum entered and electronically signed by Ursula Mukherjee MD 07/16/24 22:07:
*Acute Bronchitis, reactive airway disease (not COPD)
Original Note:
Update Note
Progress Note Update
This is an addendum to H&P written by AMARJIT Nava
I saw and examined the patient.
The VISION MIXER's note was reviewed and I agree with the note.
Comment:
Ms. Daiana Ibrahim is a 89 yo woman with hx essential HTN, HLD, DM, hx breast CA, recent admission 06/29 where she was diagnosed with a brain mass and discharged on steroids with plans for close follow up (patient and family decided against procedures
at that time), ER visit 3 days ago for evaluation of cough presents to the ER with worsening symptoms.
Triage VS: T 99.1, P 103, RR 18, BP 143/64, SpO2 93%
On exam patient is in no acute distress, off oxygen. CV: S1, S2, RRR. Chest: end expiratory wheezing. Abdomen: soft, non-tender. No LE swelling.
LABS: WBC 12.1, Hg 13.0, PLT 361, Na 139, K+ 3.7, Cl 102, CO2 28, Cr 0.7, Glucose 140, liver enzymes WNL, BNP 269, Trop < 0.012
CXR:
IMPRESSION:
No acute cardiopulmonary process.
Acute COPD exacerbation
Bronchitis
-2nd ER visit in 2 days
-admit to medicine
-standing duonebs, steroids
-recheck flu and covid
-mucinex, acapella
Recent diagnosis of brain mass
-team to touch base with Dr. Mann tomorrow to update her on plan
Essential HTN
DM II
remainder of plan per AMARJIT's note
--- NOTE | 2024-07-16 21:53 | HPS.HSE ---
Family Physician
-
Family Physician: Xochilt Ferguson MD
Chief Complaint
-
Shortness of Breath
History of Present Illness
Patient is an 89 y/o female past medical history hypertension, diabetes mellitus, and recently diagnosed with brain mass who presents with increased shortness of breath. Additionally history provided by patient's son at bedside. Patient developed
cough about 10 days ago. It was initially productive of mucus but this has improved. Over the last several days patient has developed increased shortness of breath. She was seen in the emergency department 3 days ago at which time she tested
negative for COVID and Influenza, and chest x-ray was negative for pneumonia. She was given nebulizers and steroids with improvement in her symptoms and she was discharged home. Family has been giving her the albuterol inhaler but it does not seem
to be very effective. She returns today with persistent cough and shortness of breath. She denies any fevers, sweats or chills.
Medical History
Past Medical History
Past Medical History: Reports Other
Additional Past Medical History:
Brain Mass
Diabetes Mellitus, Type II
Essential Hypertension
Hyperlipidemia
Breast Cancer
Past Surgical History: Reports Other
Additional Past Surgical History:
Left Lumpectomy
Lumbar Surgery
Cholecystectomy
Social History
Tobacco: Non-smoker
Alcohol: Occasional
Family History
Family History: Not pertinent
Allergies / Home Medications
Allergies reflects when Allergies were last updated in [facility].
Home Medications with original date entered in [facility]
Allergy/Medication List:
Allergies
Allergy/AdvReac Type Severity Reaction Status Date / Time
aspirin Allergy Swelling Verified 07/13/24 11:07
Salicylates * Allergy Swelling Verified 07/13/24 11:07
Home Medications
acetaminophen 325 mg tablet (Tylenol) 650 mg PO Q4HPRN PRN mild pain 06/08/24
atorvastatin 10 mg tablet (Lipitor) 10 mg PO Q48H High Cholesterol 06/08/24
therapeutic multivitamin 1 tab PO DAILY Supplement 06/08/24
amlodipine 5 mg tablet 5 mg PO DAILY Blood pressure #60 tabs 06/10/24
metformin 1,000 mg tablet 1,000 mg PO BID@0800,1700 Diabetes #60 tabs 06/10/24
pantoprazole 20 mg tablet,delayed release (Protonix) 20 mg PO DAILY while on steroids #60 tabs 06/10/24
dexamethasone 2 mg tablet 2 mg PO DAILY #30 tabs 07/13/24
albuterol sulfate 90 mcg/actuation aerosol inhaler 2 inh inhalation R Q6HPRN PRN shortness of breath or wheezing 07/16/24
benzonatate 100 mg capsule 100 mg PO TID 07/16/24
guaifenesin 600 mg tablet, extended release 12 hr (Mucinex) 600 mg PO [id number] PRN cough 07/16/24
Review of Systems
-
A 12 point ROS was completed and negative except as noted: Yes
Constitutional: Denies Fever or Chills
Respiratory: Reports See HPI
Cardiac: Denies Chest Pain or Palpitations
Abdomen/GI: Denies Nausea, Vomiting or Diarrhea
Physical Exam
Vital Signs
Vital Signs
Temp Pulse Resp BP Pulse Ox
99.1 F 98 22 169/101 90
07/16/24 15:25 07/16/24 21:15 07/16/24 21:15 07/16/24 20:00 07/16/24 21:00
Physical Exam
General: Comfortable and Conversant
HEENT: Anicteric and Moist mucous membranes
Respiratory: Wheezes (Scattered), Rales (Right base) and Non Labored Respirations
Cardiac: S1/S2, Regular Rhythm and Tachycardia (Slightly when sitting forward for lung exam)
GI: Soft
Rectal: Deferred by Provider
Musculoskeletal: No Clubbing, No Cyanosis and No Edema
Skin: Warm and Dry
Neuro: Awake, Alert, Oriented and Nonfocal/grossly intact
Psych: Calm
Laboratory Results
-
07/16/24 15:39
07/16/24 15:39
Laboratory Results
Total Bilirubin 0.7 mg/dl (0.2-1.3) 07/16/24 15:39
AST 19 U/L (14-36) 07/16/24 15:39
ALT 25 U/L (0-35) 07/16/24 15:39
Alkaline Phosphatase 89 U/L (38-126) 07/16/24 15:39
Troponin I < 0.012 ng/ml 07/16/24 15:39
Data Reviewed
-
Diagnostic Radiology: Report Reviewed by me
Lab Data: Labs Reviewed by me
Impression/Plan
-
Acute Bronchitis / Reactive Airway Disease
-Continue DuoNeb QID and PRN
-Continue Decadron 4mg Q12
-Continue Mucinex and Tessalon Perles
Brain Mass, recent diagnosis
-Patient due to follow-up MRI
Diabetes Mellitus, Type II
-Continue metformin
-Monitor sugars and continue coverage insulin
Essential Hypertension
-Continue amlodipine
Hyperlipidemia
-Continue atorvastatin
Hx Breast CA s/p Lumpectomy
DVT proph: SCDs
Code Status: Full Code
[2024-07-16 22:26] LABS: COVID-19 Antigen Negative (Negative)
[2024-07-17] VITALS (11 sets, daily range): BP systolic 127–157; BP diastolic 58–79; O2SAT 96; BMI 25.0
[2024-07-17] MEDS: TESSALON PERLES 200 MG PO ×2 (00:43→08:35)
--- NOTE | 2024-07-17 03:38 | DOWNTIME ---
There was a [employer] Operator Downtime on 07/17/2024 from 0200 to 07/17/2024 at 0325 . Downtime documentation of patient's care, including medication administrations, has been reconciled in the electronic record per guidelines. Refer to the
patient's paper chart under the miscellaneous tab to see printed paper medication records and downtime forms.
[2024-07-17 04:47] LABS: Hematocrit 37.2 % (37.0-47.0); Hemoglobin 12.2 g/dL (12.0-16.0); Mean Corp Hgb Conc. 32.8 g/dL (33.0-37.0); Mean Corpuscular Hgb 28.8 pg (27.0-31.0); Mean Corpuscular Volume 87.7 fL (81.0-99.0); Mean Platelet Volume 8.4 fL (7.4-10.4); Platelet Count 340 10^3/uL (130-400); Red Blood Cell Count 4.24 10^6/uL (4.20-5.40); Red Cell Dist. Width 13.2 % (11.5-14.5); White Blood Cell Count 9.6 10^3/uL (4.8-10.8)
[2024-07-17 05:05] LABS: Blood Urea Nitrogen 16 mg/dl (7-17); Calcium 9.1 mg/dl (8.4-10.2); Carbon Dioxide 25 mmol/L (22-30); Chloride 101 mmol/L (98-107); Estimated Creatinine Clearance 46 ml/min; Glucose 284 mg/dl (70-99); Potassium 4.3 mmol/L (3.5-5.1); Sodium 136 mmol/L (135-145); eGFR > 60.00
[2024-07-17 07:17] LABS: Glucose - Point of Care 266 mg/dl (70-99)
[2024-07-17] MEDS: DUONEB 3 ML INH (07:24)
[2024-07-17] MEDS: DECADRON 4 MG IV (08:35)
[2024-07-17] MEDS: MUCINEX 600 MG PO (08:35)
[2024-07-17] MEDS: PROTONIX 20 MG PO (08:35)
[2024-07-17] MEDS: GLUCOPHAGE 1000 MG PO (08:35)
[2024-07-17] MEDS: LIPITOR 10 MG PO (08:35)
[2024-07-17] MEDS: NOVOLOG FLEXPEN-LOW RESISTANCE 3 UNITS SC (08:36)
[2024-07-17] MEDS: NORVASC 5 MG PO (08:36)
--- NOTE | 2024-07-17 08:45 | VNURNOTE ---
Chart reviewed. Patient is current with [facility] nursing, PT, OT. Will continue to follow hospital course and DC plans.
--- NOTE | 2024-07-17 10:32 | W.PN.HOSP.TC ---
Today's Communication/Plan
-
Provide acappella
Discharge
Assessment / Plan
Assessment / Plan
Gen-AAOx3, NAD
HEENT-NC, AT, anicteric, clear oral mm
Neck-supple
CV-reg, no M, +S1/S2
Lungs-clear B/L
Abd-soft, NT, ND
Ext-no edema
Musculoskeletal-no cyanosis, clubbing
Skin-warm and dry
Neuro-grossly non-focal
Psych-calm, cooperative
Chronic cough -stable for discharge. Infectious workup negative. Chest x-ray clear. Discussed with patient and that her cough could linger for 6 months and she needs to be patient. No wheezing on exam. Acapella to continue on discharge.
Discussed with patient and to use daily. Follow-up with PCP next week. Discharged on prednisone taper.
Brain mass -scheduled for CT of the head on Sunday and follow-up with neurosurgery next week.
Essential hypertension
DM 2 with hyperglycemia -steroid-induced hyperglycemia noted. Hemoglobin A1c 6.7% in May. Continue metformin.
History of breast cancer
Hyperlipidemia -atorvastatin.
Dispo -medically stable for discharge. Outpatient follow-up. Updated at the bedside.
32 minutes spent in discharge process.
Anticipated Discharge: Today
Subjective/Interval History
-
Date of Service: July 17, 2024
Patient seen and examined. Denies shortness of breath. Complaining of mild cough.
Objective Data
-
Labs:
Laboratory Results
07/17/24
04:34
WBC 9.6
Hgb 12.2
Hct 37.2
Plt Count 340
Sodium 136
Potassium 4.3
Chloride 101
Carbon Dioxide 25
BUN 16
Creatinine 0.6
Glucose 284 H
Calcium 9.1
Vital Signs:
Vital Signs
Temp Pulse Resp BP Pulse Ox
99.1 F 84 23 154/63 94
07/16/24 15:25 07/17/24 07:27 07/17/24 07:27 07/17/24 06:19 07/17/24 07:27
Review of Systems
-
History Source: Patient
All other systems: Reviewed and negative
--- NOTE | 2024-07-17 10:39 | W.DS.TRANS ---
DC Summary - Senior Education Specialist
-
Discharge Instructions:
Discharge Diagnosis/Procedures Chronic cough
Diet Regular
Activity As tolerated
Driving Restrictions As prior to admission
Bathing Restrictions None
Instructions:
Stand-Alone Forms:
Changes to Home Medications: No
Discharge Medications:
DC Medications w/original date entered in [employer]
acetaminophen 325 mg tablet (Tylenol) 650 mg PO Q4HPRN PRN mild pain 06/08/24
atorvastatin 10 mg tablet (Lipitor) 10 mg PO Q48H High Cholesterol 06/08/24
therapeutic multivitamin 1 tab PO DAILY Supplement 06/08/24
amlodipine 5 mg tablet 5 mg PO DAILY Blood pressure #60 tabs 06/10/24
metformin 1,000 mg tablet 1,000 mg PO BID@0800,1700 Diabetes #60 tabs 06/10/24
pantoprazole 20 mg tablet,delayed release (Protonix) 20 mg PO DAILY while on steroids #60 tabs 06/10/24
dexamethasone 2 mg tablet 2 mg PO DAILY #30 tabs 07/13/24
albuterol sulfate 90 mcg/actuation aerosol inhaler 2 inh inhalation R Q6HPRN PRN shortness of breath or wheezing 07/16/24
benzonatate 100 mg capsule 100 mg PO TID 07/16/24
guaifenesin 600 mg tablet, extended release 12 hr (Mucinex) 600 mg PO [id number] PRN cough 07/16/24
prednisone 10 mg tablet 10 mg PO DIRECTED #20 tabs 07/17/24
Home Medication Changes
Pending Results: No
--- NOTE | 2024-07-17 11:12 | PTOTSP ---
Dysphagia Evaluation
Patient is an 89 year old female with PMH significant for brain mass admitted with chronic cough. Chest x-ray without PNA. Patient appropriate to continue regular, thin liquid diet at this time. Intermittent dry cough noted with/without PO.
Patient/family denied prior dysphagia/aspiration signs or repeated PNAs.
Recommend:
1. Regular, Thin Liquids
2. Medications: in puree
3. Strategies: upright to 90 degrees, small single sips/bites, slow rate with breaks for breathing given admission with SOB/cough
4. Oral care 2-3x daily
5. Consider swallow study if concerned for aspiration as this cannot be definitively ruled out bedside.
[2024-07-17 11:15] LABS: Glycohemoglobin (HgbA1c) 7.9 % (4.0-5.6)
--- NOTE | 2024-07-17 11:35 | CM ---
CM reviewed chart. CM introduced self and role. also at bedside. PT/OT performing their evaluations and walking patient out into hallway. Patient lives with . He stated that his is/was current with [facility]. CM spoke with CHANDRIKA Moreno
in-house liaison and confirmed that Daiana is current with [facility] and they will resume care. No need to place a new referral. will provide transportation home. She has an active PCP and pharmacy. She owns and utilizes a walker. No +SDOHs. She is
retired. There is a discharge order placed for patient.
DISCHARGE PLAN: Home with and [facility] therapy/SN services.
== END 2024-07-17 11:28 | disposition home health service (06) | DRG 192 ==
LOC: ED 22:31
PROVIDERS: Physician Assistant; Physician Assistant Medical; ADMITTING PHYSICIAN Student in an Organized Health Care Education/Training Program; ATTENDING PHYSICIAN Hospitalist; EMERGENCY PHYSICIAN Student in an Organized Health Care Education/Training Program; FAMILY PHYSICIAN Family Medicine
DX: J44.1 Chronic obstructive pulmonary disease with (acute) exacerbation (principal); I10 Essential (primary) hypertension; E11.65 Type 2 diabetes mellitus with hyperglycemia; E78.00 Pure hypercholesterolemia, unspecified; G93.9 Disorder of brain, unspecified; Z11.52 Encounter for screening for COVID-19
CPT/HCPCS: 71046; 80048; 80053; 81003; 81015; 82962; 83036; 83880; 84484; 85025; 85027; 85379; 87502; 87811; 92610; 93005; 94640; 97162; 97166; 99285